=== PATIENT | female | born 1975 | race Caucasian/White ===

== ENCOUNTER 2017-03-25 09:11 | Emergency (ER) | payer OTHER ==
[~2017-03-25] VITALS: Ht 170.1 cm; Wt 58.1 kg
[~2017-03-25 09:11] MED LIST: ANAPROX DS550 MG PO; FLEXERIL5 MG PO; HYDROCODONE BIT1 T11 PO; INHALER; LIDEX0.05% T; MOTRIN600 MG PO; MOTRIN800 MG PO; NKHM; NKHM PO; PREDNICOT20 MG PO; PREDNISONE10 MG PO; PREDNISONE20 M1 PO; TRIMOX500 MG PO
[2017-03-25 09:25] VITALS: BP 100/60
[2017-03-25] MEDS ORDERED: VENTOLIN H0.09 MG/AC INH (09:26)
[2017-03-25] MEDS ORDERED: PREDNISONE10 MG PO (09:27)
== END 2017-03-25 11:00 | disposition home or self-care (01) ==
LOC: ED 09:11
DX: L30.9 Dermatitis, unspecified (principal); Z88.1 Allergy status to other antibiotic agents; Z79.899 Other long term (current) drug therapy

== ENCOUNTER 2018-02-15 10:46 | Emergency (ER) | payer OTHER ==
[~2018-02-15] VITALS: Wt 59.0 kg
[2018-02-15 10:46] VITALS: BP 113/57
[~2018-02-15 10:46] MED LIST changes: +VENTOLIN H0.09 MG/AC INH
[2018-02-15] MEDS ORDERED: PREDNISONE10 MG PO (10:52)
== END 2018-02-15 11:00 | disposition home or self-care (01) ==
LOC: ED 10:46
DX: L25.9 Unspecified contact dermatitis, unspecified cause (principal); Z88.1 Allergy status to other antibiotic agents; Z79.899 Other long term (current) drug therapy

== ENCOUNTER 2019-03-20 12:34 | Emergency (ER) | payer SELFPAY ==
[~2019-03-20] VITALS: Ht 170.1 cm; Wt 61.2 kg
[2019-03-20 12:36] VITALS: BP 119/70
[2019-03-20] MEDS ORDERED: PREDNISONE10 MG PO (13:03)
== END 2019-03-20 13:11 | disposition home or self-care (01) ==
LOC: ED 12:34
DX: L23.7 Allergic contact dermatitis due to plants, except food (principal); F17.200 Nicotine dependence, unspecified, uncomplicated; Z88.8 Allergy status to other drugs, medicaments and biological substances

== ENCOUNTER 2021-04-05 13:39 | Emergency (ER) | payer SELFPAY ==
[~2021-04-05] VITALS: Wt 63.5 kg
[2021-04-05 13:53] VITALS: BP 106/55
[2021-04-05] MEDS ORDERED: MEDROL DOSEPAK4 MG PO (16:16)
== END 2021-04-05 16:19 | disposition home or self-care (01) ==
LOC: ED 13:39
DX: M12.811 Other specific arthropathies, not elsewhere classified, right shoulder (principal); Z88.8 Allergy status to other drugs, medicaments and biological substances; Z79.899 Other long term (current) drug therapy

== ENCOUNTER 2022-07-23 10:22 | Emergency (ER) | payer SELFPAY ==
[~2022-07-23] VITALS: Ht 167.6 cm; Wt 59.4 kg
[~2022-07-23 10:22] MED LIST changes: +MEDROL DOSEPAK4 MG PO
[2022-07-23 10:23] VITALS: BP 108/63
[2022-07-23] MEDS ORDERED: AMOX-CLAV 875-1 EACH PO (10:58)
== END 2022-07-23 11:08 | disposition home or self-care (01) ==
LOC: ED 10:22
DX: L03.213 Periorbital cellulitis (principal); Z88.1 Allergy status to other antibiotic agents

== ENCOUNTER 2024-08-03 10:02 | Emergency (ER) | payer OTHER ==
[~2024-08-03] VITALS: Ht 170.1 cm; Wt 61.2 kg
[~2024-08-03 10:02] MED LIST changes: +AMOX-CLAV 875-1 EACH PO
[2024-08-03 10:05] VITALS: BP 117/61
[2024-08-03] MEDS ORDERED: TRIAMCINOLONE430 GM TD (10:13)
[2024-08-03] MEDS ORDERED: PREDNISONE20 M1 PO (10:13)
== END 2024-08-03 10:14 | disposition home or self-care (01) ==
LOC: ED 10:02
DX: L25.9 Unspecified contact dermatitis, unspecified cause (principal); R21 Rash and other nonspecific skin eruption; Z88.8 Allergy status to other drugs, medicaments and biological substances; Z98.890 Other specified postprocedural states